=== PATIENT | female | born 1975 | race Caucasian/White ===

== ENCOUNTER → 2016-08-10 | Outpatient (CLI) | payer BC | END | disposition home or self-care (01) | LOC: C.LABBC 10:40 | PROVIDERS: ATTEND Internal Medicine Geriatric Medicine | DX: E03.9 Hypothyroidism, unspecified (principal) ==

== ENCOUNTER → 2016-11-02 | Outpatient (CLI) | payer BC ==
[2016-11-02 20:04] LABS: LYME DISEASE AB IGG NEG (NEG); LYME DISEASE AB IGM NEG (NEG)
== END | disposition home or self-care (01) ==
LOC: C.LAB1850 16:03
PROVIDERS: ATTEND Physician Assistant
DX: T14.8 Other injury of unspecified body region (principal); W57.XXXA Bitten or stung by nonvenomous insect and other nonvenomous arthropods, initial encounter

== ENCOUNTER → 2017-11-14 | Outpatient (CLI) | payer OTHER ==
--- NOTE | 2017-11-14 15:12 | MAMMOGRAPHY REPORT ---
BILATERAL DIGITAL SCREENING MAMMOGRAM TOMOSYNTHESIS WITH CAD: 11/14/2017 CLINICAL HISTORY: Routine screening. Patient has no complaints. TECHNIQUE: Breast tomosynthesis in addition to standard 2D mammography was performed. Current study was also evaluated with a Computer Aided Detection (CAD) system. COMPARISON: Comparison is made to exam dated: 10/12/2015 mammogram - [facility]. BREAST COMPOSITION: There are scattered areas of fibroglandular density in both breasts. FINDINGS: There is a 10 mm focal asymmetry in the 6:00 to 7:00 middle one third of the left breast, for which additional spot compression tomosynthesis views and possible ultrasound are recommended. No other suspicious mass, architectural distortion or cluster of microcalcifications is seen bilatera llmichelle. IMPRESSION: ACR BI-RADS CATEGORY 0: INCOMPLETE EVALUATION: NEED ADDITIONAL IMAGING EVALUATION The 10 mm focal asymmetry in the 6:00 to 7:00 left breast needs additional evaluation. The patient will be called to schedule an appointment. Approximately 10% of breast cancers are not detected with mammography. A negative mammographic report should not delay biopsy if a clinically suggestive mass is present. Kristen Hays M.D. ay/:11/14/2017 14:52:21 Compensation Advisor: Negar MORRIS)(Abilio)([place]), [facility] letter sent: Addl Imaging 0 BI-RADS Code: ACR BI-RADS Category 0: Incomplete Evaluation: Need Additional Imaging Evaluation
== END | disposition home or self-care (01) ==
LOC: C.MAMM 10:35
PROVIDERS: ATTEND Physician Assistant Medical
DX: Z12.31 Encounter for screening mammogram for malignant neoplasm of breast (principal); N64.89 Other specified disorders of breast

== ENCOUNTER → 2017-11-22 | Outpatient (CLI) | payer OTHER ==
--- NOTE | 2017-11-22 14:45 | MAMMOGRAPHY REPORT ---
UNILATERAL LEFT DIGITAL DIAGNOSTIC MAMMOGRAM TOMOSYNTHESIS AND TARGETED LEFT ULTRASOUND: 11/22/2017 CLINICAL HISTORY: Callback from screening mammogram for left breast asymmetry. TECHNIQUE: Breast tomosynthesis in addition to standard 2D mammography was performed. Spot compress ion left CC and MLO 2D and tomosynthesis images were obtained. COMPARISON: Comparison is made to exams dated: 11/14/2017 mammogram, 10/20/2015 ultrasound, and 016 mammogram - [facility]. BREAST COMPOSITION: There are scattered areas of fibroglandular density in the left breast. FINDINGS: Spot compression views demonstrate a persistent subtle low-density focal asymmetry within t he left breast at approximately 6 to 7:00 measuring approximately 9 mm, best seen on the tomosynthesi s images. Targeted ultrasound was performed of the left 6 to 7:00 breast in the region of the mammographic asym metry. In the left breast at 6:00, 7 cm from the nipple, there is a subtle slightly hypoechoic lobul ated 8 x 4 x 6 mm mass. The margins are not completely circumscribed. This likely correlates with t he mammographic asymmetry and is indeterminant. Ultrasound-guided core needle biopsy is recommended for further evaluation. IMPRESSION: ACR BI-RADS CATEGORY 4: SUSPICIOUS, TARGETED ULTRASOUND ACR BI-RADS CATEGORY 4: SUSPICIO US Hypoechoic 8 mm mass in the left 6:00 breast on ultrasound, which likely corresponds with the mammogr aphic focal asymmetry. The mass is indeterminate and ultrasound-guided core needle biopsy is recomme nded for further evaluation, with post-clip mammograms to evaluate for mammographicsonographic conco rdance. A phone call was made to the physician's office to confirm faxed results were received. The patient has been verbally notified of the results. She tentatively scheduled the biopsy before leaving the [facility]. Approximately 10% of breast cancers are not detected with mammography. A negative mammographic report should not delay biopsy if a clinically suggestive mass is present. Aziza Schmid M.D. /:11/22/2017 11:46:58 Paint Dipper: Elis FRENCH(Yesi)(M), [facility] letter sent: Abnormal 4/5 BI-RADS Code: ACR BI-RADS Category 4: Suspicious Ultrasound BI-RADS: ACR BI-RADS Category 4: Suspici ous
== END ==
LOC: C.MAMM 10:28
PROVIDERS: ATTEND Physician Assistant Medical
DX: N63.42 Unspecified lump in left breast, subareolar (principal); N64.89 Other specified disorders of breast

== ENCOUNTER → 2017-11-29 | Outpatient (CLI) | payer OTHER ==
--- NOTE | 2017-11-29 10:02 | Discharge Instructions ---
Discharge Instructions Procedure Procedure Date: November 29, 2017. Reason for visit: Left Mass. Discharge Discharge Date: November 29, 2017. Discharge Diagnosis: status post breast biopsy Instructions Activity Recommendations: Additional Limitations (see below) Return to School/Work: no limitations Recommended Home Diet: No Limitations Provider Instructions: ACTIVITY RECOMMENDATIONS: * No lifting, pushing, pulling or exercising the affected side for three days. RETURN TO SCHOOL/WORK: * You may return to work/school after the procedure, but do not perform any strenuous activities for 24 to 48 hours. MEDICATIONS: * Tylenol (two 325 mg) every four to six hours if needed for mild pain (if not allergic to Tylenol). DIET: * Resume previous diet. SPECIAL CARE INSTRUCTIONS: * Keep biopsy site dry for 24 hours. May shower after 24 hours, but do not soak (bathe) incision. * May remove Tegaderm (plastic patch) tomorrow AFTER showering. * Leave the steri-strips on for one week. Allow the steri-strips to fall off by themselves. If not off after one week, you may remove them. You may place a Bandaid crosswise over the strips, if desired. * Apply ice 10 minutes on and 10 minutes off as needed. * Wear a bra at bedtime to sleep more comfortably for 2-3 days. * Your referring physician should have the results after approximately 5 to 7 business days. * Call for unusual bleeding, fever, drainage, etc or if you have any questions call during normal business hours or after hours call Dr Schmid, [phone]. FOLLOW UP VISIT: Follow-up with Referring Physician as scheduled. Aurea Delgadilloy Recommendations: Call your doctor if: * Temperature above 101 degrees * Pain not relieved by pain medicine ordered * There is increased drainage or redness from any incision * You have any unanswered questions or concerns. Your Doctors Instructions noted above were prepared by provider Aziza Schmid. Patient Signature Section: Patient Instructions Signature Page Maricarmen Hendrickson Patient (or Guardian) Signature/Date: I have read and understand the instructions given to me by my caregivers. Caregiver/RN/Doctor Signature/Date: The above-named patient and/or guardian has received patient instructions on this date. + Original Patient Signature Page (only) stays with chart. Please make copy for patient.
--- NOTE | 2017-11-29 12:41 | MAMMOGRAPHY REPORT ---
UNILATERAL LEFT DIGITAL DIAGNOSTIC MAMMOGRAM TOMOSYNTHESIS: 11/29/2017 CLINICAL HISTORY: Status post left breast biopsy. TECHNIQUE: Breast tomosynthesis in addition to standard 2D mammography was performed. Postprocedura l left CC and ML tomosynthesis images were obtained. COMPARISON: Comparison is made to exams dated: 11/22/2017 ultrasound, 11/22/2017 mammogram, 11/14/2017 mammogram, 10/20/2015 ultrasound, and 10/12/2015 mammogram - [facility]. BREAST COMPOSITION: There are scattered areas of fibroglandular density in the left breast. FINDINGS: A new biopsy marker clip is seen in the expected location of the biopsied mass in the left 6:00 breast. The biopsy clip is located in the region of the previously seen asymmetry, indicating g ood correlation between the biopsied sonographic mass and the mammographic asymmetry. No significant postbiopsy hematoma is seen. IMPRESSION: POST PROCEDURE IMAGING FOR MARKER PLACEMENT New biopsy marker clip status post left breast biopsy. Pathology results are pending. Approximately 10% of breast cancers are not detected with mammography. A negative mammographic report should not delay biopsy if a clinically suggestive mass is present. Aziza Schmid M.D. ah/:11/29/2017 10:33:43 Commercial Engineer: Janet MORRIS)(Abilio), [facility] BI-RADS Code: Post Procedure Imaging For Marker Placement
--- NOTE | 2017-11-29 12:41 | MAMMOGRAPHY REPORT ---
ULTRASOUND GUIDED BIOPSY LEFT BREAST: 11/29/2017 CLINICAL HISTORY: Left 6:00 breast mass. PATIENT CONSENT: The procedure, risks and benefits were discussed with the patient and informed writt en consent was obtained. A timeout was performed immediately prior to the procedure. PROCEDURE DESCRIPTION: With ultrasound guidance, aseptic technique, and lidocaine as the local anesth etic (1% lidocaine to anesthetize the skin and 1% lidocaine with epinephrine to anesthetize the deepe r tissues), the mass of concern in the left 6:00 breast was sampled 4 times with a 14-gauge Achieve b iopsy needle. Immediately thereafter, with ultrasound guidance, aseptic technique, and lidocaine as the local anesthetic, a metallic localizer clip was placed centrally in the mass. Direct pressure w as applied to the site immediately post procedure and hemostasis was achieved. Postprocedure unilate ral mammograms were performed to confirm placement of the clip in the expected location of the breast mass. The patient tolerated the procedure without complication. She was given wound care instructi ons. The specimens were sent to pathology for analysis. COMPARISON: Comparison is made to exams dated: 11/22/2017 ultrasound, 11/22/2017 mammogram, 11/14/2017 mammogram, 10/20/2015 ultrasound, and 10/12/2015 mammogram - [facility]. IMPRESSION: ULTRASOUND GUIDED BIOPSY Ultrasound-guided core needle biopsy of the left 6:00 breast mass, with clip placement. The patient will receive pathology results from her referring provider. Aziza Schmid M.D. ah/:11/29/2017 10:32:18 Tele Rn: Janet MORRIS)(Abilio), [facility]
== END | disposition home or self-care (01) ==
LOC: C.MAMM 09:25
PROVIDERS: ATTEND Physician Assistant Medical
DX: N63.20 Unspecified lump in the left breast, unspecified quadrant (principal)